=== PATIENT | female | born 1940 | race Two or more races ===

== ENCOUNTER 2019-07-15 09:01 | Outpatient (CLI) | payer OTHER | END 2019-07-15 11:52 | disposition home or self-care (01) | LOC: OFIC 805 09:01 | DX: R07.0 Pain in throat (principal); R49.0 Dysphonia; H61.23 Impacted cerumen, bilateral | CPT/HCPCS: 31575; 69210; 99203; G0463 ==

== ENCOUNTER 2020-11-30 13:08 | Outpatient (CLI) | payer OTHER | END 2020-11-30 13:11 | disposition home or self-care (01) | LOC: NUCLEAR 13:08 | PROVIDERS: ATTEND Internal Medicine | DX: M81.0 Age-related osteoporosis without current pathological fracture (principal) ==